=== PATIENT | male | born 1975 | race Caucasian/White ===

== ENCOUNTER 2017-09-13 19:31 | Emergency (ER) | payer SELFPAY | END 2017-09-13 23:15 | disposition home or self-care (01) | LOC: FTE 19:31 | DX: S80.811A Abrasion, right lower leg, initial encounter (principal); R07.9 Chest pain, unspecified; R93.0 Abnormal findings on diagnostic imaging of skull and head, not elsewhere classified; V49.40XA Driver injured in collision with unspecified motor vehicles in traffic accident, initial encounter | CPT/HCPCS: 70450; 71010; 73562; 73590; 99284-25 ==